=== PATIENT | female | born 1970 | race Caucasian/White ===

== ENCOUNTER 2016-08-21 13:42 | Emergency (ER) | payer OTHER ==
[~2016-08-21] VITALS: Ht 157.5 cm; Wt 83.1 kg
[~2016-08-21 13:42] MED LIST: AMBIEN10 MG PO; ASPIRIN81 M2 PO; ATIVAN1 MG PO; AUGMENTIN500 MG PO; BACTRIM DS PO; CALCIUM 500 MG1 EACH PO; CINNAMON500 MG PO; CRO-MAN-ZIN TA1 EACH PO; CYCLOBENZAPRINE10 MG PO; DOXYCYCLINE HY100 MG PO; FOLGARD1 TABLET PO; IBUPROFEN800 MG PO; LABETALOL HCL100 MG PO; LABETALOL HCL200 MG PO; MACROBID100 MG PO; METHERGINE0.2 MG PO; METHYLDOPA250 MG PO; METRONIDAZOLE500 MG PO; OMEPRAZOLE20 MG; OSTEO BI-FLEX1 EAC3 PO; PERCOCET 5/31 TABLET PO; PRENATAL TABLE1 EAC3 PO; PriLOSEC PO; VIBRID; VIIBRYD20 MG PO; VITAMIN D1000 INTUN PO; WELLBUTRIN75 MG PO
[2016-08-21 14:39] LABS: BASOPHIL COUNT 0.1 K/uL (0-0.1); EOSINOPHIL (%) 2.3 % (0-5); EOSINOPHIL COUNT 0.3 K/uL (0-0.3); HEMATOCRIT 38.4 % (36.0-46.0); IMMATURE GRANULOCYTE (%) 1.6 % (0.0-0.7); IMMATURE GRANULOCYTE COUNT 0.2 K/uL; INSTRUMENT ABS NEUTROPHIL CT 8.2 K/uL; LYMPHOCYTE COUNT 2.8 K/uL (1.0-2.8); MCH 30.2 PG (29.0-34.0); MCHC 34.4 G/DL (30.0-36.0); MCV 87.9 FL (83-99); MEAN PLAT.VOLUME 10.4 uM^3 (9.5-12.4); MONOCYTE (%) 7.3 % (3-12); MONOCYTE COUNT 0.9 K/uL (0-0.8); NEUTROPHIL (%) 65.9 % (45-76); NEUTROPHIL COUNT 8.2 K/uL (1.8-6.4); PLATELET COUNT 212 K/uL (156-360); RBC DIS.WIDTH-SD 47.1 % (39-53); RED BLOOD COUNT 4.37 M/uL (3.80-5.20); WHITE BLOOD COUNT 12.4 K/uL (4.1-10.2)
[2016-08-21 14:47] LABS: CHLORIDE 105 mEq/L (99-109); POTASSIUM 3.9 mEq/L (3.7-5.4); SODIUM 139 mEq/L (136-147)
[2016-08-21 14:49] LABS: GLUCOSE 90 mg/dL (70-99)
[2016-08-21 14:50] LABS: D-DIMER ELISA 0.52 mg/L FEU (< 0.57)
[2016-08-21 14:51] LABS: ANION GAP 9 MEQ/L (2-14); TOTAL BILIRUBIN 1.2 mg/dL (0.0-1.0)
[2016-08-21 14:53] LABS: ALKALINE PHOSPHATASE 79 IU/L (3-129); GFR ESTIMATE (CALCULATED) > 59 mL/min/
[2016-08-21 14:54] LABS: UREA NITROGEN (BUN) 9 mg/dL (9-23)
[2016-08-21 15:00] LABS: TROP-I INTERPRETATION NEGATIVE; TROPONIN-I < 0.01 ng/mL (0.0-0.30)
[2016-08-21 15:33] LABS: QUANTITATIVE HCG < 4.0 MIU/ML
[2016-08-21] MEDS ORDERED: PROVENTIL HFA6.7 GM IH (19:02)
[2016-08-21] MEDS ORDERED: MEDROL DOSEPAK4 MG PO (19:02)
[2016-08-21 19:21] VITALS: BP 128/67
== END 2016-08-21 19:23 | disposition home or self-care (01) ==
LOC: EME 13:42
PROVIDERS: Emergency Medicine
DX: R06.00 Dyspnea, unspecified (principal); R07.9 Chest pain, unspecified; E72.12 Methylenetetrahydrofolate reductase deficiency; I10 Essential (primary) hypertension; Z79.82 Long term (current) use of aspirin
CPT/HCPCS: 71275; 80053; 83880; 84484; 84702; 85025; 85379; 93005; 94640; 99281; 99285

== ENCOUNTER 2017-09-16 09:43 | Emergency (ER) | payer OTHER ==
[~2017-09-16] VITALS: Ht 157.5 cm; Wt 88.2 kg
[~2017-09-16 09:43] MED LIST changes: +MEDROL DOSEPAK4 MG PO; +PROVENTIL HFA6.7 GM IH
[2017-09-16 10:49] LABS: HEMATOCRIT 33.3 % (36.0-46.0); HEMOGLOBIN 11.7 G/DL (11.9-15.5); MCHC 35.1 G/DL (30.0-36.0); MCV 88.1 FL (83-99); PLATELET COUNT 209 K/uL (156-360); RBC DIS.WIDTH-CV 14.6 % (11.8-14.6); RBC DIS.WIDTH-SD 46.8 % (39-53); RED BLOOD COUNT 3.78 M/uL (3.80-5.20); WHITE BLOOD COUNT 11.4 K/uL (4.1-10.2)
[2017-09-16 11:03] LABS: CHLORIDE 108 mEq/L (99-109); POTASSIUM 4.2 mEq/L (3.7-5.4); SODIUM 142 mEq/L (136-147)
[2017-09-16 11:05] LABS: GLUCOSE 107 mg/dL (70-99)
[2017-09-16 11:08] LABS: CREATININE 0.8 mg/dL (0.6-1.3); GFR ESTIMATE (CALCULATED) > 59 mL/min/
[2017-09-16 11:09] LABS: UREA NITROGEN (BUN) 10 mg/dL (9-23)
[2017-09-16 11:10] LABS: TROP-I INTERPRETATION NEGATIVE; TROPONIN-I < 0.01 ng/mL (0.0-0.30)
[2017-09-16 12:30] LABS: D-DIMER ELISA < 150.00 ng/mLDDU (<230)
[2017-09-16 15:03] LABS: TROP-I INTERPRETATION NEGATIVE; TROPONIN-I < 0.01 ng/mL (0.0-0.30)
[2017-09-16 15:32] VITALS: BP 133/85
== END 2017-09-16 15:32 | disposition home or self-care (01) ==
LOC: EME 09:43
PROVIDERS: Emergency Medicine
DX: R07.89 Other chest pain (principal); R06.02 Shortness of breath; I10 Essential (primary) hypertension; K21.9 Gastro-esophageal reflux disease without esophagitis; F32.9 Major depressive disorder, single episode, unspecified; F41.9 Anxiety disorder, unspecified
CPT/HCPCS: 71046; 71275; 80048; 84484; 85027; 85379; 93005; 99281; 99285